=== PATIENT | male | born 1990 | race Caucasian/White ===

== ENCOUNTER 2018-05-10 20:34 | Emergency (ER) | payer SELFPAY ==
[2018-05-10] MEDS ORDERED: ONDANSETRON 4 MG (ODT) TAB ONE (20:53)
[2018-05-10] MEDS ORDERED: IBUPROFEN 400 MG TAB ONE (21:36)
[2018-05-10] MEDS ORDERED: ACETAMINOPHEN 325 MG TABLET ONE (21:36)
[2018-05-10] MEDS ORDERED: NA CHLORIDE 0.9% 1,000 ML ONE (22:35)
[2018-05-10 22:43] LABS: Absolute Lymphocytes (CBC) 1.4 K/uL (0.7-4.9); Absolute Monocytes 0.6 K/uL (0.1-1.3); Absolute Neutrophil 13.5 K/uL (1.8-8.0); Basophils % 0.1 % (0-1.3); Eosinophils % 0.2 % (0-4.4); Hematocrit 49.4 % (39.6-49.0); MCH 29.5 pg (27.0-35.0); MCV 86.4 fL (80-100); MPV 8.8 fL (7.6-11.3); Monocytes % 3.7 % (3.3-12.3); RBC Red Blood Cell Count 5.72 M/uL (4.33-5.43)
[2018-05-10 23:44] LABS: BUN Blood Urea Nitrogen 13 mg/dL (7-18); Bicarbonate 26 mmol/L (21-32); Glucose Level 143 mg/dL (74-106); Potassium 4.1 mmol/L (3.5-5.1); Sodium Level 137 mmol/L (136-145)
[2018-05-10 23:49] LABS: Blood Morphology Comment NOT SEEN (NOT SEEN); Platelet Estimate ADEQ
--- NOTE | 2018-05-11 02:24 | ER ---
Nurse's Notes [facility] Name: Randy Cannon Age: 27 yrs Sex: Male : 1990 Arrival Date: 05/10/2018 Time: 20:40 Bed 20 Private MD: Diagnosis: Mesentaric Paniculitis;Diarrhea, unspecified;Nausea and vomiting Presentation: 05/10 20:46 Presenting complaint: Patient states: N/V/D today with fever and body aches. Transition aj of care: patient was not received from another setting of care. Onset of symptoms was May 10, 2018. Risk Assessment: Do you want to hurt yourself or someone else? Patient reports no desire to harm self or others. Initial Sepsis Screen: Does the patient meet any 2 criteria? HR > 90 bpm. Does the patient have a suspected source of infection? No. Patient's initial sepsis screen is negative. Care prior to arrival: None. 20:46 Method Of Arrival: Ambulatory aj 20:46 Acuity: EMMA 3 aj Triage Assessment: 20:47 General: Appears in no apparent distress. comfortable, Behavior is calm, cooperative, aj appropriate for age. Pain: Denies pain. Neuro: Level of Consciousness is awake, alert, obeys commands, Oriented to person, place, time, situation, Appropriate for age. Respiratory: Airway is patent Respiratory effort is even, unlabored, Respiratory pattern is regular, symmetrical. GI: Reports diarrhea, nausea, vomiting. Derm: Skin is intact, is healthy with good turgor, Skin is pink, warm \T\ dry. normal. Historical: - Allergies: 20:47 No Known Allergies; aj - Home Meds: 20:47 None [Active]; aj - PMHx: 20:47 None; aj - PSHx: 20:47 None; aj - Immunization history:: Adult Immunizations up to date. - Social history:: Smoking status: Patient/guardian denies using tobacco. - Ebola Screening: : Patient negative for fever greater than or equal to 101.5 degrees Fahrenheit, and additional compatible Ebola Virus Disease symptoms Patient denies exposure to infectious person Patient denies travel to an Ebola-affected area in the 21 days before illness onset No symptoms or risks identified at this time. Screenin:09 Abuse screen: Denies threats or abuse. Denies injuries from another. Nutritional ak1 screening: No deficits noted. Tuberculosis screening: No symptoms or risk factors identified. Fall Risk None identified. Assessment: 22:09 General: Appears in no apparent distress. Behavior is calm, cooperative. Pain: ak1 Complains of pain in abdomen. Neuro: No deficits noted. Cardiovascular: No deficits noted. Respiratory: No deficits noted. GI: Reports cramping, diarrhea, nausea, vomiting. : No signs and/or symptoms were reported regarding the genitourinary system. EENT: No signs and/or symptoms were reported regarding the EENT system. Derm: No signs and/or symptoms reported regarding the dermatologic system. Musculoskeletal: No signs and/or symptoms reported regarding the musculoskeletal system. 05/11 01:53 Reassessment: pt c/o diarrhea X2 prior to going to CT. provider notified with no new ak1 medication orders, verbal orders to collect a sample should pt go again. Vital Signs: 05/10 20:47 BP 144 / 97; Pulse 122; Resp 20; Temp 99.8; Pulse Ox 99% on R/A; Weight 136.08 kg; aj Height 6 ft. 0 in. (182.88 cm); 23:14 BP 121 / 80; Pulse 102; Resp 16; Pulse Ox 97% on R/A; ak1 23:45 Pulse 102; Resp 16; Temp 98.7(O); ak1 05/11 00:37 Pulse 96; Resp 16; Temp 98.7(O); Pulse Ox 96% on R/A; ak1 05/10 20:47 Body Mass Index 40.69 (136.08 kg, 182.88 cm) ED Course: 05/10 20:40 Patient arrived in ED. ds1 20:47 Triage completed. aj 20:47 Arm band placed on right wrist. Patient placed in waiting room, Patient notified of aj wait time Patient Zofran given in triage. 22:09 Carmencita Ford, AARON is Primary Nurse. ak1 22:09 Asya Aranda F[facility]-C is [facility]. kb 22:09 Silvestre Ramsey MD is Attending Physician. kb 22:09 Patient has correct armband on for positive identification. Bed in low position. Call ak1 light in reach. Side rails up X 1. Adult w/ patient. Pulse ox on. NIBP on. 22:37 Initial lab(s) drawn, by me, sent to lab. Flu and/or RSV swab sent to lab. Strep swab ak1 sent to lab. Inserted saline lock: 20 gauge in right antecubital area, using aseptic technique. Blood collected. 23:14 No provider procedures requiring assistance completed. ak1 05/11 01:[address] via wheelchair. kw1 01:47 CT Abd/Pelvis - W/Contrast In Process Unspecified. EDMS 01:48 CT completed. Patient tolerated procedure well. Patient moved back from CT. kw1 02:43 IV discontinued, intact, bleeding controlled, No redness/swelling at site. Pressure ak1 dressing applied. Administered Medications: 05/10 20:46 Drug: Zofran 4 mg Route: PO; aj 21:30 Follow up: Response: Nausea is decreased aj 21:30 Drug: Tylenol 650 mg Route: PO; aj 23:40 Follow up: Response: No adverse reaction ak1 21:30 Drug: Motrin 400 mg Route: PO; aj 23:40 Follow up: Response: No adverse reaction ak1 22:37 Drug: NS 0.9% 1000 ml Route: IV; Rate: 1000 ml; Site: right antecubital; ak1 23:43 Follow up: IV Status: Completed infusion ak1 05/11 01:59 Follow up: IV Status: Completed infusion ak1 02:38 Drug: Cipro 500 mg Route: PO; ak1 02:38 Follow up: Response: No adverse reaction ak1 02:38 Drug: Flagyl 500 mg Route: PO; ak1 02:38 Follow up: Response: No adverse reaction ak1 Outcome: 02:23 Discharge ordered by MD. wolfe 02:42 Discharged to home ambulatory, with family. ak1 02:42 Condition: good 02:42 Discharge instructions given to patient, family, Instructed on discharge instructions, follow up and referral plans. no drinking with medication, no driving heavy equipment, medication usage, Demonstrated understanding of instructions, follow-up care, medications, Prescriptions given X 4. 02:43 Patient left the ED. ak1 Signatures: Dispatcher [employer] EDMS Asya Aranda, HOSIERY MATERCatC SANDY-Mounika Dow RN Debby Billy dsCarmencita Villar RN RN ak1 Valeria Lowry kw1
--- NOTE | 2018-05-11 02:25 | EDPHYS ---
Physician Documentation [facility] Name: Randy Cannon Age: 27 yrs Sex: Male : 1990 Arrival Date: 05/10/2018 Time: 20:40 Bed 20 Private MD: ED Physician Silvestre Ramsey HPI: 05/11 00:06 This 27 yrs old Male presents to ER via Ambulatory with complaints of kb Diarrhea, Nausea/Vomiting. 00:06 The patient presents to the emergency department with nausea, vomiting, diarrhea. kb Onset: The symptoms/episode began/occurred this morning. Possible causes: unknown. The symptoms are aggravated by nothing. The symptoms are alleviated by nothing. Associated signs and symptoms: Pertinent positives: diarrhea, nausea, vomiting. Severity of symptoms: At their worst the symptoms were moderate in the emergency department the symptoms are unchanged. The patient has not experienced similar symptoms in the past. The patient has not recently seen a physician. Historical: - Allergies: 05/10 20:47 No Known Allergies; aj - Home Meds: 20:47 None [Active]; aj - PMHx: 20:47 None; aj - PSHx: 20:47 None; aj - Immunization history:: Adult Immunizations up to date. - Social history:: Smoking status: Patient/guardian denies using tobacco. - Ebola Screening: : Patient negative for fever greater than or equal to 101.5 degrees Fahrenheit, and additional compatible Ebola Virus Disease symptoms Patient denies exposure to infectious person Patient denies travel to an Ebola-affected area in the 21 days before illness onset No symptoms or risks identified at this time. ROS: 05/11 00:05 ENT: Negative for injury, pain, and discharge, Neck: Negative for injury, pain, and kb swelling, Cardiovascular: Negative for chest pain, palpitations, and edema, Respiratory: Negative for shortness of breath, cough, wheezing, and pleuritic chest pain, Back: Negative for injury and pain, : Negative for injury, bleeding, discharge, and swelling, MS/Extremity: Negative for injury and deformity, Skin: Negative for injury, rash, and discoloration, Neuro: Negative for headache, weakness, numbness, tingling, and seizure. Constitutional: Positive for body aches, fatigue, fever, malaise, Negative for chills, poor PO intake, weight loss. Abdomen/GI: Positive for nausea, vomiting, and diarrhea, Negative for abdominal pain, constipation, abdominal cramps, abdominal distension, anorexia. Exam: 00:05 Constitutional: This is a well developed, well nourished patient who is awake, alert, kb and in no acute distress. Head/Face: Normocephalic, atraumatic. ENT: Nares patent. No nasal discharge, no septal abnormalities noted. Tympanic membranes are normal and external auditory canals are clear. Oropharynx with no redness, swelling, or masses, exudates, or evidence of obstruction, uvula midline. Mucous membranes moist. Neck: Trachea midline, no thyromegaly or masses palpated, and no cervical lymphadenopathy. Supple, full range of motion without nuchal rigidity, or vertebral point tenderness. No Meningismus. Chest/axilla: Normal chest wall appearance and motion. Nontender with no deformity. No lesions are appreciated. Cardiovascular: Regular rate and rhythm with a normal S1 and S2. No gallops, murmurs, or rubs. Normal PMI, no JVD. No pulse deficits. Respiratory: Lungs have equal breath sounds bilaterally, clear to auscultation and percussion. No rales, rhonchi or wheezes noted. No increased work of breathing, no retractions or nasal flaring. Abdomen/GI: Soft, non-tender, with normal bowel sounds. No distension or tympany. No guarding or rebound. No evidence of tenderness throughout. Back: No spinal tenderness. No costovertebral tenderness. Full range of motion. Skin: Warm, dry with normal turgor. Normal color with no rashes, no lesions, and no evidence of cellulitis. MS/ Extremity: Pulses equal, no cyanosis. Neurovascular intact. Full, normal range of motion. Neuro: Awake and alert, GCS 15, oriented to person, place, time, and situation. Cranial nerves II-XII grossly intact. Motor strength 5/5 in all extremities. Sensory grossly intact. Cerebellar exam normal. Normal gait. Vital Signs: 05/10 20:47 BP 144 / 97; Pulse 122; Resp 20; Temp 99.8; Pulse Ox 99% on R/A; Weight 136.08 kg; aj Height 6 ft. 0 in. (182.88 cm); 23:14 BP 121 / 80; Pulse 102; Resp 16; Pulse Ox 97% on R/A; ak1 23:45 Pulse 102; Resp 16; Temp 98.7(O); ak1 05/11 00:37 Pulse 96; Resp 16; Temp 98.7(O); Pulse Ox 96% on R/A; ak1 05/10 20:47 Body Mass Index 40.69 (136.08 kg, 182.88 cm) aj MDM: 05/10 22:09 Patient medically screened. kb 05/11 00:05 Data reviewed: vital signs, nurses notes. Data interpreted: Pulse oximetry: on room air kb is 97 %. Interpretation: normal. Counseling: I had a detailed discussion with the patient and/or guardian regarding: the historical points, exam findings, and any diagnostic results supporting the discharge/admit diagnosis, lab results, the need for outpatient follow up, a family practitioner, to return to the emergency department if symptoms worsen or persist or if there are any questions or concerns that arise at home. 05/10 21:43 Order name: Flu; Complete Time: 22:24 aa1 05/10 21:43 Order name: Strep; Complete Time: 22:24 aa1 05/10 22:16 Order name: CBC with Diff; Complete Time: 23:56 kb 05/10 22:16 Order name: Basic Metabolic Panel; Complete Time: 23:48 kb 05/10 22:16 Order name: [place] Screen Profile; Complete Time: 00:36 kb 05/10 22:28 Order name: Throat Culture EDMS 05/10 22:47 Order name: Manual Differential; Complete Time: 23:56 EDOK 05/11 00:37 Order name: CT Abd/Pelvis - W/Contrast kb 05/10 22:16 Order name: IV Start; Complete Time: 22:37 kb Administered Medications: 05/10 20:46 Drug: Zofran 4 mg Route: PO; aj 21:30 Follow up: Response: Nausea is decreased aj 21:30 Drug: Tylenol 650 mg Route: PO; aj 23:40 Follow up: Response: No adverse reaction ak1 21:30 Drug: Motrin 400 mg Route: PO; aj 23:40 Follow up: Response: No adverse reaction ak1 22:37 Drug: NS 0.9% 1000 ml Route: IV; Rate: 1000 ml; Site: right antecubital; ak1 :43 Follow up: IV Status: Completed infusion [facility] 05/11 01:59 Follow up: IV Status: Completed infusion ak1 02:38 Drug: Cipro 500 mg Route: PO; ak1 02:38 Follow up: Response: No adverse reaction ak1 02:38 Drug: Flagyl 500 mg Route: PO; ak1 02:38 Follow up: Response: No adverse reaction ak1 Disposition: 05/11/18 02:23 Discharged to Home. Impression: Mesentaric Paniculitis, Diarrhea, unspecified, Nausea and vomiting. - Condition is Stable. - Discharge Instructions: Food Choices to Help Relieve Diarrhea, Adult, Nausea and Vomiting, Adult, [id number], Diarrhea, Adult, [id number]. - Prescriptions for Bentyl 20 mg Oral Tablet - take 1 tablet by ORAL route every 6 hours As needed; 20 tablet. Flagyl 500 mg Oral Tablet - take 1 tablet by ORAL route every 8 hours for 7 days; 21 tablet. Zofran 4 mg Oral Tablet - take 1 tablet by ORAL route every 6 hours As needed; 20 tablet. Cipro 500 mg Oral Tablet - take 1 tablet by ORAL route every 12 hours for 7 days; 14 tablet. - Medication Reconciliation Form, Thank You Letter, Antibiotic Education, Prescription Opioid Use, Work release form form. - Follow up: Emergency Department; When: As needed; Reason: Worsening of condition. Follow up: Private Physician; When: 2 - 3 days; Reason: Recheck today's complaints, Continuance of care, Re-evaluation by your physician. Addendum: 05/14/2018 06:55 Co-signature as Attending Physician, Silvestre Ramsey MD I agree with the assessment and c silva plan of care. Signatures: Dispatcher [employer] Asya Dow, SANDY-C TRANSFER TABLE OPERATOR HELPER-Mounika Dow, Silvestre Helton RN, MD MD cha Krenek, Amber, RN RN ak1 Corrections: (The following items were deleted from the chart) 05/11 02:43 02:23 05/11/2018 02:23 Discharged to Home. Impression: Mesentaric Paniculitis; ak1 Diarrhea, unspecified; Nausea and vomiting. Condition is Stable. Forms are Medication Reconciliation Form, Thank You Letter, Antibiotic Education, Prescription Opioid Use. Follow up: Emergency Department; When: As needed; Reason: Worsening of condition. Follow up: Private Physician; When: 2 - 3 days; Reason: Recheck today's complaints, Continuance of care, Re-evaluation by your physician. kb
[2018-05-11] MEDS ORDERED: metroNIDAZOLE 500 MG TABLET ONE (02:41)
[2018-05-11] MEDS ORDERED: CIPROFLOXACIN HCL 500 MG TAB ONE (02:41)
--- NOTE | 2018-05-11 08:35 | RAD REPORT ---
EXAM DESCRIPTION: CTAbdomen Pelvis W Contrast - 05/11/2018 5:51 am CLINICAL HISTORY: Abdominal pain. iv contrast only;Abd pain COMPARISON: No comparisons TECHNIQUE: Biphasic CT imaging of the abdomen and pelvis was performed with 100 ml non-ionic IV cont rast. All CT scans are performed using dose optimization technique as appropriate and may include automated exposure control or mA/KV adjustment according to patient size. FINDINGS: The lung bases are clear. The liver demonstrates mild fatty infiltration. The spleen, pancreas, adrenal glands and kidneys are within normal limits. No bowel obstruction, free air, free fluid or abscess. The appendix is normal. No evidence of signi ficant lymphadenopathy. No suspicious bony findings. IMPRESSION: No acute intra-abdominal or pelvic finding.
== END 2018-05-11 02:43 | disposition home or self-care (01) ==
LOC: ER 20:34
DX: K65.4 Sclerosing mesenteritis (principal); R19.7 Diarrhea, unspecified
CPT/HCPCS: 36415; 74177; 80048; 85025; 86308; 87070; 87081; 87804; 96360; 99284; J7030; Q9967